=== PATIENT | male | born 1940 | race African-American/Black ===

== ENCOUNTER 2018-01-23 16:49 | Emergency (ER) | payer MEDICARE ==
[2018-01-23] MEDS ORDERED: DIPHENHYDRAMINE HCL 25 MG CAPSULE PO ONE (18:47)
[2018-01-23] MEDS ORDERED: METOCLOPRAMIDE HCL 10 MG TABLET PO ONE (18:47)
[2018-01-23] MEDS ORDERED: ACETAMINOPHEN 325 MG TABLET PO ONE (18:48)
--- NOTE | 2018-01-23 18:51 | ER Document Report ---
ED Medical Screen (RME) - General Chief Complaint: Headache Stated Complaint: HEADACHE Time Seen by Provider: 01/23/18 18:45 Notes: Patient says he is having a severe migraine headache. He is never been told that he has migraine headaches before, but he does get occasional less severe headaches. Said this pain in his right side of his head was just slightly present when he woke up this morning. During the day, the pain has worsened. He has had some dizziness when he went to go upstairs. He is tried Aleve without any relief. Denies any nausea or vomiting. No problems with his vision. Has not had any recent illness and no fevers. PMH: Hypertension, cholesterol. Physical Exam - Vital signs Vitals: Temp Pulse Resp BP Pulse Ox 98 F 56 L 18 134/74 H 99 01/23/18 16:55 01/23/18 16:55 01/23/18 16:55 01/23/18 16:55 01/23/18 16:55 Course - Vital Signs Vital signs: Temp Pulse Resp BP Pulse Ox 98 F 56 L 18 134/74 H 99 01/23/18 16:55 01/23/18 16:55 01/23/18 16:55 01/23/18 16:55 01/23/18 16:55
[2018-01-23] MEDS ORDERED: MAGNESIUM SULFATE/D5W 1 GM/100 ML RTUPB IV ONE (19:24)
[2018-01-23] MEDS ORDERED: NORMAL SALINE 500 ML IV ONE (19:24)
--- NOTE | 2018-01-23 19:25 | ER Document Report ---
ED General - General Chief Complaint: Headache Stated Complaint: HEADACHE Time Seen by Provider: 01/23/18 18:45 Notes: Patient is a 77-year-old male that presents to the emergency department for chief complaint of right-sided headache. Patient states that he woke up this morning with a headache in the right side of his head, that slowly and progressively got worse throughout the course of the day, he did take Aleve, with minimal relief of his symptoms, he did have associated nausea, but no vomiting. He states he has had headaches like this before, but was never diagnosed with migraines, but feels it is like a migraine headache. At the time he rated his headache as a 7 out of 10, at its apex, but he received medication in triage in the emergency department, and at this time he states his headache is completely resolved. He denied noting any numbness, weakness or tingling in any of his extremities, denies visual changes or vision loss. Denies history of glaucoma. Past Medical History: Hypertension Past Surgical History: Cardiac ablation, hernia repair Social History: Denies tobacco, alcohol or illicit drug use. Family History: Reviewed and noncontributory for presenting illness Allergies: Reviewed, see documented allergy list. REVIEW OF SYSTEMS: Other than noted above, the 12 point review of systems was reviewed with the patient and were negative, all pertinent findings are included in the HPI. PHYSICAL EXAMINATION: Vital signs reviewed, nursing noted reviewed. GENERAL: Well-appearing, well-nourished and in no acute distress. HEAD: Atraumatic, normocephalic. EYES: Eyes appear normal, extraocular movements intact, sclera anicteric, conjunctiva are normal. Intraocular pressures are measured bilaterally, and were 21 mmHg bilaterally, upper limit of normal. ENT: nares patent, oropharynx clear without exudates. Moist mucous membranes. No tenderness over palpation of the sinuses NECK: Normal range of motion, supple without lymphadenopathy LUNGS: Breath sounds clear to auscultation bilaterally and equal. No wheezes rales or rhonchi. HEART: Regular rate and rhythm without murmurs ABDOMEN: Soft, nontender, normoactive bowel sounds. No rebound, guarding, or rigidity. No masses appreciated. EXTREMITIES: Nontender, good range of motion, no pitting or edema. NEUROLOGICAL: No focal neurological deficits. Moves all extremities spontaneously Motor and sensory grossly intact on exam. PSYCH: Normal mood, normal affect. SKIN: Warm, Dry, normal turgor, no rashes or lesions noted on exposed skin - Related Data Allergies/Adverse Reactions: No Known Allergies Allergy (Unverified 01/23/18 18:51) Past Medical History - Social History Smoking Status: Former Smoker Family History: Reviewed & Not Pertinent Patient has suicidal ideation: No Patient has homicidal ideation: No - Past Medical History Cardiac Medical History: Reports: Hx Hypercholesterolemia, Hx Hypertension Renal/ Medical History: Denies: Hx Peritoneal Dialysis Physical Exam - Vital signs Vitals: Temp Pulse Resp BP Pulse Ox 98 F 56 L 18 134/74 H 99 01/23/18 16:55 01/23/18 16:55 01/23/18 16:55 01/23/18 16:55 01/23/18 16:55 Course - Re-evaluation Re-evalutation: Patient seen and examined vital signs reviewed. Laboratory data and imaging were ordered as appropriate for the patient's presenting symptoms and complaint, with consideration of any critical or life threatening conditions that may be associated with their obtained history and exam as noted above. Patient was treated with p.o. Reglan, Benadryl and Tylenol Results were reviewed when available and demonstrated negative head CT, blood work demonstrated mild anemia, non-concerning for presentation, and very mild leukopenia, he did have elevation in monocytes, patient was not complaining of sore throat, or other symptoms of mononucleosis The patient was re-evaluated and was improved, headache was completely resolved with p.o. medications. Evaluation was most consistent with migraine type headache, nonspecific, advised the patient if his symptoms worsen or return, to return to the emergency department, was given a prescription for Fioricet 6 total tablets if needed to take for headache, but he was encouraged if he develops any worsening symptoms to return to the emergency department. Results were discussed with the patient at this point, after careful consideration I feel that that patient can be discharged from the emergency department, the patient was educated treatments and reasons to return to the emergency department based on their presumed diagnosis as noted above, they were advised to followup with a primary care physician in 2-3 days. Patient was agreeable to plan of care. *Note is created using voice recognition software and may contain spelling, syntax or grammatical errors. Laboratory 01/23/18 01/23/18 19:08 19:08 WBC 2.9 L RBC 3.72 L Hgb 12.4 L Hct 36.9 L MCV 99 H MCH 33.4 MCHC 33.7 RDW 15.7 H Plt Count 170 Seg Neutrophils % 45.4 Lymphocytes % 33.2 Monocytes % 18.1 H Eosinophils % 2.7 Basophils % 0.6 Absolute Neutrophils 1.3 L Absolute Lymphocytes 1.0 Absolute Monocytes 0.5 Absolute Eosinophils 0.1 Absolute Basophils 0.0 Sodium 142.1 Potassium 5.1 H Chloride 104 Carbon Dioxide 28 Anion Gap 10 BUN 30 H Creatinine 1.09 Est GFR ( Amer) > 60 Est GFR (Non-Af Amer) > 60 Glucose 94 Calcium 9.5 Total Bilirubin 0.9 Direct Bilirubin 0.2 Neonat Total Bilirubin Not Reportable Neonat Direct Bilirubin Not Reportable Neonat Indirect Bili Not Reportable AST 29 ALT 16 L Alkaline Phosphatase 76 Total Protein 7.[address] 01/23/18 18:46 IMPRESSION: CHRONIC CHANGES OF ATROPHY AND MICROVASCULAR ISCHEMIA. NO ACUTE PROCESS. EVIDENCE OF ACUTE STROKE: NO. - Vital Signs Vital signs: Temp Pulse Resp BP Pulse Ox 97.9 F 49 L 16 169/87 H 100 01/23/18 21:11 01/23/18 21:11 01/23/18 21:11 01/23/18 21:11 01/23/18 21:11 - Laboratory Result Diagrams: 01/23/18 19:08 01/23/18 19:08 Laboratory results interpreted by me: 01/23/18 01/23/18 19:08 19:08 WBC 2.9 L RBC 3.72 L Hgb 12.4 L Hct 36.9 L MCV 99 H RDW 15.7 H Monocytes % 18.1 H Absolute Neutrophils 1.3 L Potassium 5.1 H BUN 30 H ALT 16 L Discharge - Discharge Clinical Impression: Cephalgia Qualifiers: Headache type: unspecified Headache chronicity pattern: acute headache Intractability: not intractable Qualified Code(s): R51 - Headache Condition: Stable Disposition: HOME, SELF-CARE Instructions: Headache ([facility]) Additional Instructions: Please return to the emergency department if you have any worsening, or concern of your symptoms. Please return to the emergency department if you develop chest pain, difficulty breathing, severe abdominal pain, or ongoing vomiting. Please follow-up with your primary care physician in 2-3 days and any other recommended physicians. If prescribed, take all medications as directed. If you have any questions or concerns do not hesitate to return the emergency department for evaluation. 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 Prescriptions: Butalb/Acetaminophen/Caffeine [Fioricet (50-325-40 mg) Tablet] 1 tab PO Q6HP PRN #6 tab PRN Reason: headache Referrals: HAM BEVERLY MD [Primary Care Provider] - Follow up in 3-5 days
[2018-01-23 19:27] LABS: ABSOLUTE EOSINOPHILS # (AUTO) 0.1 10^3/uL (0.0-0.6); ABSOLUTE MONOCYTES (AUTO) 0.5 10^3/uL (0.1-1.4); ABSOLUTE NEUT (AUTO) 1.3 10^3/uL (1.7-8.2); BASOPHILS % (AUTO) 0.6 % (0-2); EOSINOPHILS % (AUTO) 2.7 % (0-6); HEMATOCRIT 36.9 % (37.9-51.0); HEMOGLOBIN 12.4 g/dL (13.5-17.0); LYMPHOCYTES % (AUTO) 33.2 % (13-45); MEAN CORPUSCULAR HEMOGLOBIN 33.4 pg (27.0-33.4); MEAN CORPUSCULAR HGB CONC 33.7 g/dL (32.0-36.0); MEAN CORPUSCULAR VOLUME 99 fl (80-97); MONOCYTES % (AUTO) 18.1 % (3-13); PLATELET COUNT 170 10^3/uL (150-450); RED BLOOD COUNT 3.72 10^6/uL (4.35-5.55); RED CELL DISTRIBUTION WIDTH 15.7 % (11.5-14.0); SEGMENTED NEUTROPHILS % (AUTO) 45.4 % (42-78); TOTAL CELLS COUNTED % (AUTO) 100 %; WHITE BLOOD COUNT 2.9 10^3/uL (4.0-10.5)
[2018-01-23 19:45] LABS: ALANINE AMINOTRANSFERASE 16 U/L (21-72); ALBUMIN 4.5 g/dL (3.5-5.0); ALKALINE PHOSPHATASE 76 U/L (38-126); ANION GAP 10 (5-19); ASPARTATE AMINO TRANSFERASE 29 U/L (17-59); BILIRUBIN,DIRECT 0.2 mg/dL (0.0-0.4); BILIRUBIN,TOTAL 0.9 mg/dL (0.2-1.3); BLOOD UREA NITROGEN 30 mg/dL (7-20); CALCIUM 9.5 mg/dL (8.4-10.2); CARBON DIOXIDE 28 mmol/L (22-30); CHLORIDE 104 mmol/L (98-107); GLUCOSE 94 mg/dL (75-110); POTASSIUM 5.1 mmol/L (3.6-5.0); SODIUM 142.1 mmol/L (137-145); TOTAL PROTEIN 7.6 g/dL (6.3-8.2)
--- NOTE | 2018-01-23 20:05 | RADIOLOGY REPORT (SQ) ---
EXAM DESCRIPTION: CT HEAD WITHOUT COMPLETED DATE/TIME: 01/23/2018 7:44 pm REASON FOR STUDY: Headache, right-sided COMPARISON: None. TECHNIQUE: Axial images acquired through the brain without intravenous contrast. Images reviewed wi th bone, brain and subdural windows. Images stored on PACS. All CT scanners at this facility use dose modulation, iterative reconstruction, and/or weight based d osing when appropriate to reduce radiation dose to as low as reasonably achievable (ALARA). [facility]: Dose Right [facility]: CareDose [facility]: Dose Right [facility]: Teradose 4D [facility]: [employer] RADIATION DOSE: CT Rad equipment meets quality standard of care and radiation dose reduction techniq ues were employed. CTDIvol: 48.6 mGy. DLP: 954 mGy-cm.mGy. LIMITATIONS: None. FINDINGS: VENTRICLES: Prominent. CEREBRUM: No mass effect. No hemorrhage. No midline shift. Areas of low density in the white matte r most likely due to chronic micro-vascular ischemic change. No evidence for acute territorial infar ction. CEREBELLUM: No hemorrhage. No alteration of density. No evidence for acute infarction. EXTRAAXIAL SPACES: Age-related involutional change. No fluid collections. ORBITS AND GLOBE: Symmetrical contour of the globes. CALVARIUM: No depressed fracture. PARANASAL SINUSES: No air-fluid level. SOFT TISSUES: No hematoma. IMPRESSION: CHRONIC CHANGES OF ATROPHY AND MICROVASCULAR ISCHEMIA. NO ACUTE PROCESS. EVIDENCE OF ACUTE STROKE: NO. TECHNICAL DOCUMENTATION: JOB ID: [id number] SD-64 Quality ID # [id number]: Final reports with documentation of one or more dose reduction techniques (e.g., Au tomated exposure control, adjustment of the mA and/or kV according to patient size, use of iterative reconstruction technique) 2010 [employer]- All Rights Reserved Reading location - IP/workstation name: [email or web address]
[2018-01-23] MEDS ORDERED: TETRACAINE HCL 0.5% OPH SOLN 4 ML OU ONE (20:09)
[2018-01-23 21:27] VITALS: BP 169/87
== END 2018-01-23 21:38 | disposition home or self-care (01) ==
LOC: ER 16:49
DX: R51 Headache (principal); R11.0 Nausea; I10 Essential (primary) hypertension; D64.9 Anemia, unspecified; Z87.891 Personal history of nicotine dependence
CPT/HCPCS: 99284; 36415; 85025; 80053; 70450; A9270 ×3; J3490